=== PATIENT | female | born 1990 ===

== ENCOUNTER → 2019-05-03 17:03 | Outpatient (CLI) | payer OTHER, SELFPAY ==
[2019-05-03 20:00] LABS: Urine N gonorrhoeae NOT DETECTED
[2019-05-06 12:58] LABS: Urine Chlamydia DETECTED
== END ==
PROVIDERS: Visit Provider Physician Assistant
DX: N89.8 Other specified noninflammatory disorders of vagina (principal)
CPT/HCPCS: 87210; 87491; 87591